=== PATIENT | male | born 1970 | race Caucasian/White ===

== ENCOUNTER 2021-02-20 06:07 | Emergency (ER) | payer OTHER, SELFPAY ==
--- NOTE | 2021-02-20 06:23 | ECG_ITS ---
Test Reason : CHEST PAIN/L ARM Blood Pressure : / mmHG Vent. Rate : 084 BPM Atrial Rate : 084 BPM P-R Int : 136 ms QRS Dur : 084 ms QT Int : 378 ms P-R-T Axes : 043 023 051 degrees QTc Int : 446 ms Normal sinus rhythm Normal ECG No previous ECGs available Referred By: Zenobia Abdalla Electronically Signed By:Troy Frank
[2021-02-20 06:24] VITALS: BP 151/91; PULSE 85; RESP 18; TEMP 36.8; O2SAT 97; BMI 29.5
--- NOTE | 2021-02-20 06:25 | PC.NURSE ---
EKG was completed by this PCT at 0623.
--- NOTE | 2021-02-20 06:37 | ED.CHESTPAIN ---
HPI - Chest Pain General Chief Complaint: Extremity Problem Stated Complaint: chest pain/left arm pain Time Seen by Provider: 02/20/21 06:37 Source: patient Mode of arrival: ambulatory Limitations: no limitations History of Present Illness MD complaint: other (neck pain) Onset (ago): day(s) (3) Timing of current episode: constant Prior episodes: No Onset: during rest Pain location: other (Left neck) Pain radiation: left arm Severity: moderate Quality: sharp Relieving factors: nothing Exacerbating factors: palpation and movement Context: other (started after work) Related Data Previous Rx's Medication Instructions Recorded enalapril maleate 10 mg tablet 10 mg PO DAILY 90 Days #90 tab 11/29/20 hydrochlorothiazide 25 mg tablet 25 mg PO DAILY #90 tab 12/04/20 diazepam 5 mg tablet (Valium) 5 mg PO TID PRN #10 tab 02/20/21 ibuprofen 600 mg tablet 600 mg PO Q6H PRN #30 tab 02/20/21 lidocaine 4 % topical patch 1 patch TOPICAL DAILY PRN #10 ea 02/20/21 prednisone 20 mg tablet 40 mg PO DAILY 4 Days #8 tab 02/20/21 Allergies Allergy/AdvReac Type Severity Reaction Status Date / Time No Known Allergies Allergy Unverified 04/06/20 17:35 Review of Systems Review of Systems: Constitutional : No Weight loss, No Fever, No Chills, No Fatigue, No Malaise ENT/Mouth : No sore throat, No Rhinorrhea, pos neck pain Eyes: No Eye Pain, No Swelling, No Redness Cardiovascular : No Chest Pain, No SOB, No Dyspnea on Exertion, No Orthopnea, No Edema, No Palpitations Respiratory : No Cough, No Sputum, No Wheezing Gastrointestinal : No Nausea, No Vomiting, No Diarrhea, No Constipation, No abdominal Pain, No Hematochezia, No Melena Genitourinary : No Dysuria, No Urinary Frequency, No Hematuria, Musculoskeletal : No joint pain, No Myalgias, No Joint Swelling Skin : No Skin Lesions, No rash Neuro : No Weakness, No Numbness, No Dizziness, No Headache Psych : No Anxiety/Panic, No Depression Heme/Lymph: No Bruising, No Bleeding,No Lymphadenopathy Endocrine : No Polyuria, No Polydipsia All other systems reviewed and are negative PMFSH Past Medical History Medical History High cholesterol HTN (hypertension) Social History Social History (Updated 02/20/21 @ 06:48 by Zenobia Abdalla DO) Patient Tobacco Use Status: Never used Tobacco Use of substances other than those prescribed or required for medical reasons: No Physical Exam Vital Signs: Vital Signs: Last Vital Signs Temp 98.3 F 02/20/21 06:24 Pulse 85 02/20/21 06:24 Resp 18 02/20/21 06:24 BP 151/91 H 02/20/21 06:24 Pulse Ox 97 02/20/21 06:24 Body Mass Index 29.5 Appearance: Alert. Oriented X3. No acute distress. Eyes: Pupils equal, round and reactive to light. ENT: Pharynx normal. Neck: L trapezius spasm, + spurling's maneuver distal NV intact CVS: Normal heart rate and rhythm. Pulses normal. Respiratory: No respiratory distress. Breath sounds normal. Abdomen: Soft and nontender. Skin: Skin warm and dry. Normal skin color. Normal skin turgor. Extremities: No lower extremity edema. No calf ttp Neuro: Oriented X 3. No motor deficit. No sensory deficit. 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 Normal MISSY. Normal QRS complex. ST T wave : normal no JYOTI qTC: normal prior studies: no acute ischemia The study has been interpreted contemporaneously by me. . Discharge Plan Discharge Clinical Impression: Cervical radiculopathy Patient Disposition: Home, Self-Care Instructions: Cervical Radiculopathy (ED) Additional Instructions: return to ED for any worsening symptoms or concerns Prescriptions: New lidocaine 4 % adhesive patch,medicated 1 patch topical DAILY PRN (Reason: pain) Qty: 10 RF: 0 prednisone 20 mg tablet 40 mg PO DAILY 4 Days Qty: 8 RF: 0 ibuprofen 600 mg tablet 600 mg PO Q6H PRN (Reason: pain) Qty: 30 RF: 0 diazepam [Valium] 5 mg tablet 5 mg PO TID PRN (Reason: muscle spasm) Qty: 10 RF: 0 No Action enalapril maleate 10 mg tablet 10 mg PO DAILY 90 Days Qty: 90 RF: 1 hydrochlorothiazide 25 mg tablet 25 mg PO DAILY Qty: 90 RF: 1 Referrals: Physician,Unknown [Primary Care Provider] - 2 days (if not better) Stand Alone Forms: Work/School Release Print Language: Portuguese
--- NOTE | 2021-02-20 06:40 | PC.NURSE ---
left shoulder pain and not chest pain. dr madrigal at bedside.
[2021-02-20] MEDS: Lidocaine 4 % Patch ADH..PATCH 1 PATCH TRANSDERMA (06:48)
[2021-02-20] MEDS: Ketorolac Tromethamine 60 MG/2 ML VIAL IM (06:49)
[2021-02-20] MEDS: diazePAM 5 MG TABLET PO (06:49)
[2021-02-20] MEDS: predniSONE 20 MG TABLET 40 MG PO (06:49)
[2021-02-20 07:09] VITALS: BP 146/87; PULSE 76; RESP 18
== END 2021-02-20 07:10 | disposition home or self-care (01) ==
LOC: HO.ED 06:52
PROVIDERS: Emergency Provider Emergency Medicine
DX: M54.12 Radiculopathy, cervical region (principal); R07.9 Chest pain, unspecified; M79.602 Pain in left arm; Z79.899 Other long term (current) drug therapy
CPT/HCPCS: 93005; 96372; 99283; 99284; J1885

== ENCOUNTER 2021-08-10 09:18 | Outpatient (REF) | payer OTHER, SELFPAY ==
[2021-08-10 09:43] LABS: Hematocrit 44.8 % (42.0-52.0); Hemoglobin 15.4 g/dl (14.0-18.0); Mean Corpuscular HGB Conc 34.4 g/dl (31.0-36.0); Mean Corpuscular Hemoglobin 33.8 pg (27.0-33.0); Mean Corpuscular Volume 98.5 fL (80.0-98.0); Mean Platelet Volume 10.1 fL (9.4-12.4); Platelet Count 156 X10*3/uL (160-400); Red Blood Count 4.55 X10*6/uL (4.60-5.80); Red Cell Distribution Width 12.4 % (11.0-16.0); White Blood Count 4.7 X10*3/uL (4.8-10.8)
[2021-08-10 09:56] LABS: Estimated Average Glucose 114 mg/dL; Hemoglobin A1c % 5.6 %
[2021-08-10 10:07] LABS: Alanine Aminotransferase 71 U/L (0-40); Albumin Level 4.2 g/dL (3.5-5.0); Alkaline Phosphatase 82 U/L (39-117); Anion Gap 13 (12-20); Aspartate Amino Transferase 47 U/L (5-37); Bilirubin Total 0.4 mg/dL (0.0-1.0); Blood Urea Nitrogen 14 mg/dL (9-16); Calcium 9.4 mg/dL (8.4-10.2); Carbon Dioxide 25 mmol/L (22-29); Chloride 105 mmol/L (96-108); Cholesterol 224 mg/dL; Estimated Glomerular Filt Rate > 60; Glucose Fasting 134 mg/dL (60-99); HDL Cholesterol 42 mg/dL; LDL Cholesterol Calculated 139 mg/dl; Potassium 4.1 mmol/L (3.3-5.1); Sodium 139 mmol/L (135-145); Triglycerides 217 mg/dL
[2021-08-10 10:29] LABS: Prostate Specific Antigen Scr 1.11 ng/mL (<0.05-4.0); TSH reflex Free T4 2.92 uIU/mL (0.32-4.0)
[2021-08-10 11:06] LABS: Creatinine Urine 193.13 mg/dL; Microalbum/Creatinine Ratio Ur 20.1 ug/mg cr
== END 2021-08-10 09:19 | disposition home or self-care (01) ==
LOC: HO.LAB 09:18
PROVIDERS: PCP Physician Assistant; Visit Provider Physician Assistant
DX: Z12.5 Encounter for screening for malignant neoplasm of prostate (principal); I10 Essential (primary) hypertension
CPT/HCPCS: 36415; 80053; 80061; 82043; 83036; 84153; 84443; 85027